=== PATIENT | female | born 1960 | race Caucasian/White ===

== ENCOUNTER 2023-12-06 07:43 | Outpatient (CLI) | payer OTHER, SELFPAY ==
--- NOTE | ~2023-12-06 | US_ITS ---
EXAMINATION: US renal BI, US retroperitoneal duplex ltd DATE: 12/06/2023 09:01 CDT INDICATION: Chronic kidney disease. Decreased renal function. TECHNIQUE: Sonographic imaging of the kidneys was performed with a 3.5 MHz transducer. Retroperitone al duplex sonogram of the renal arteries also obtained. FINDINGS: Renal echotexture is normal bilaterally without hydronephrosis, mass or cyst. Right kidney measures 8.6 cm. Left kidney measures 8.3 cm. Bladder is unremarkable. No focal flow abnormalities ar e seen in the renal arteries on color Doppler. The peak systolic velocity ranges of the right and le ft renal arteries and aorta are 92 cm per second, 273 cm per second, and 64 cm per second, respective ly. The right velocities and renal to aortic ratios are within normal limits. The left renal artery v elocity for renal/right aortic ratios are elevated measuring 4.26, consistent with renal artery steno sis. IMPRESSION: 1. Abnormal left renal artery/aortic systolic velocity ratio, consistent with renal artery stenosis. Reviewed, dictated and finalized at location B. IMPRESSION: 1. Abnormal left renal artery/aortic systolic velocity ratio, consistent with renal artery stenosis.
== END 2023-12-06 07:44 | disposition home or self-care (01) ==
PROVIDERS: PCP Family Medicine; Visit Provider Family Medicine
DX: R79.89 Other specified abnormal findings of blood chemistry (principal); N18.30 Chronic kidney disease, stage 3 unspecified; J45.909 Unspecified asthma, uncomplicated; E78.2 Mixed hyperlipidemia; R73.03 Prediabetes; G43.909 Migraine, unspecified, not intractable, without status migrainosus
CPT/HCPCS: 76775; 93976

== ENCOUNTER 2024-08-10 08:19 | Outpatient (CLI) | payer OTHER, SELFPAY ==
--- NOTE | ~2024-08-10 | MR_ITS ---
EXAMINATION: MR cervical spine wo con DATE: 08/10/2024 08:55 INDICATION: Bilateral occipital neuralgia TECHNIQUE: Magnetic resonance imaging (MRI) of the cervical spine was performed without intravenous c ontrast. Sequences included sagittal T2-weighted FSE, sagittal T2-weighted FS FSE, sagittal T1-weight ed FSE, axial MERGE and axial T2-weighted FSE. COMPARISON: None FINDINGS: Bone alignment is normal. Vertebral body heights are normal. Small Schmorl's node along the superior endplate of C7. Bone marrow signal intensity is normal. Moderate disc height loss at C4-C5 and C5-C6 and mild disc height loss at C3-C4. Cord signal intensity is normal. Cervical soft tissues are unrem arkable. The following disc levels are specifically discussed: C2-C3: The disc does not extend beyond the endplate margin. There is no uncovertebral joint osteoarth ritis. There is mild left and moderate right facet joint osteoarthritis. There is no neural foraminal stenosis. There is no central canal stenosis. C3-C4: The disc does not extend beyond the endplate margin. There is mild left and moderate right unc overtebral osteoarthritis. uncovertebral joint osteoarthritis. There is mild bilateral facet joint os teoarthritis. There is mild bilateral neural foraminal stenosis. There is no central canal stenosis. C4-C5: Disc is mildly bulging There is moderate bilateral uncovertebral joint osteoarthritis. There i s moderate bilateral facet joint osteoarthritis. There is mild bilateral neural foraminal stenosis. T here is mild central canal stenosis with mild flattening the right ventral surface of the cord. C5-C6: Disc is bulging. There is moderate left and severe right uncovertebral joint osteoarthritis. T here is moderate bilateral facet joint osteoarthritis. There is mild bilateral neural foraminal steno sis. There is mild central canal stenosis. C6-C7: Disc is bulging. There is moderate bilateral uncovertebral joint osteoarthritis. There is mild right and moderate left facet joint osteoarthritis. There is mild bilateral neural foraminal stenosi s. There is mild central canal stenosis. C7-T1: The disc does not extend beyond the endplate margin. There is no uncovertebral joint osteoarth ritis. There is moderate left and severe right facet joint osteoarthritis. There is no neural foramin al stenosis. There is no central canal stenosis. IMPRESSION: 1. Moderate cervical spondylosis. Reviewed, dictated and finalized at location A.
== END 2024-08-10 08:20 | disposition home or self-care (01) ==
LOC: MICIMG 08:19
PROVIDERS: PCP Family Medicine; Visit Provider Family Medicine
DX: M43.02 Spondylolysis, cervical region (principal)
CPT/HCPCS: 72141